=== PATIENT | female | born 1955 | race Caucasian/White ===

== ENCOUNTER → 2024-04-24 10:51 | Outpatient (REF) | payer MEDICARE, OTHER, SELFPAY | LOC: WDC 10:51 | PROVIDERS: ATTENDING PHYSICIAN Obstetrics & Gynecology; FAMILY PHYSICIAN Internal Medicine | DX: Z12.31 Encounter for screening mammogram for malignant neoplasm of breast (principal) | CPT/HCPCS: 77063; 77067 ==

== ENCOUNTER → 2025-04-27 18:06 | Outpatient (REF) | payer MEDICARE, OTHER, SELFPAY | LOC: WDC 18:06 | PROVIDERS: ATTENDING PHYSICIAN Obstetrics & Gynecology; FAMILY PHYSICIAN Internal Medicine | DX: Z12.31 Encounter for screening mammogram for malignant neoplasm of breast (principal) | CPT/HCPCS: 77063; 77067 ==